=== PATIENT | female | born 1975 | race Caucasian/White ===

== ENCOUNTER 2019-10-23 00:58 | Outpatient (CLI) | payer OTHER, SELFPAY ==
[2019-10-23 19:25] LABS: SARS-CoV-2 RNA PCR Negative
== END 2019-10-23 00:59 | disposition home or self-care (01) ==
LOC: ANHCOVIDDT 00:58
PROVIDERS: Visit Provider Obstetrics & Gynecology
DX: Z01.812 Encounter for preprocedural laboratory examination (principal); Z11.59 Encounter for screening for other viral diseases
CPT/HCPCS: 36415; 86850; 86900; 86901; 87635; C9803; U0003

== ENCOUNTER 2019-10-23 09:18 | Outpatient (CLI) | payer OTHER, SELFPAY | END 2019-10-23 09:19 | disposition home or self-care (01) | PROVIDERS: Visit Provider Obstetrics & Gynecology | DX: R10.2 Pelvic and perineal pain (principal); Z01.812 Encounter for preprocedural laboratory examination | CPT/HCPCS: 36415; 86850; 86900; 86901 ==

== ENCOUNTER 2019-10-25 00:46 | Day surgery (SDC) | payer OTHER, SELFPAY ==
[2019-10-11 15:57] VITALS: BMI 18.1
[2019-10-25] VITALS (17 sets, daily range): BP systolic 101–135; BP diastolic 67–117; PULSE 53–92; RESP 12–18; TEMP 36.2–37.1; O2SAT 96–100
--- NOTE | 2019-10-25 10:11 | WPDANESEPPF ---
Anes - Initial Pre Proc Eval Procedure: Operation Date: 10/25/19 12:00 Proposed Procedures p Total Laparoscopic Hysterectomy with Bilateral Salpingectomy - Rukhsana Robledo MD Date/Time: 10/25/19 10:11 Surgeon: Rukhsana Robledo MD Pre Op Diagnosis: pelvic pain, nabothian follicles on cervix Patient Data Age: 43 Gender: F Height: 1.55 m Weight: 43.54 kg Allergies Allergy/AdvReac Type Severity Reaction Status Date / Time penicillin G Allergy Severe CHILLS, N/V Verified 10/11/19 15:20 adhesive tape Allergy Rash Verified 10/11/19 15:20 amoxicillin Allergy Nausea and Verified 10/11/19 16:13 Vomiting latex Allergy Rash Verified 10/11/19 15:20 Home Medications Medication Instructions Recorded Confirmed Type cetirizine [Zyrtec] 10 mg PO DAILY 10/11/19 10/11/19 History multivitamin,[id number] 1 tablet PO DAILY 10/11/19 10/11/19 History [Complete Multivitamin] Patient hx anesthesia problems: none Family hx anesthesia problems: none PMFSH Past Medical History Medical History (Updated 10/25/19 @ 10:13 by Hema Kothari MD) Anxiety Asthma IBS (irritable bowel syndrome) Migraine Pelvic inflammatory disease Surgical History Surgical History (Updated 10/25/19 @ 10:13 by Hema Kothari MD) Hx of appendectomy Social History Social History (Updated 10/11/19 @ 16:12 by Rubi Thacker RN) Smoking packs per day: 0.5 Smoking cigarettes per day: 10.0 Years smoked: 3 Smoking pack-years: 1.50 Smoking status: Former smoker Tobacco type: cigarettes Smoking end date: 12/12/12 Alcohol intake: never Substance use: current Substance use type: marijuana Living arrangements: with family Spiritual care concerns: No Anes - Eval Final PreProcedure Day of Procedure 10/25/19 10:11 Patient weight: normal Heart: regular rate and rhythm Lungs: clear to auscultation and normal air movement Airway: Mallampati scale class II Neurological: alert and oriented Last oral intake: >/= 8 hours ASA classification: II Emergent: no Anesthetic plan: proceed Anesthesia type and monitoring: general ETT Informed Consent: The patient's anesthetic plan and its attendant risks and benefits were discussed with the patient/family/POA. Questions were solicited and answers provided to the satisfaction of the patient/family/POA.
[2019-10-25] MEDS: LACTATED RINGERS 1,000 ML 30 ML IV CONT ×2 (10:30→15:10)
[2019-10-25] MEDS: KETOROLAC 15 MG/ML VIAL (*BKC) IV PUSH ×2 (11:00→21:15)
[2019-10-25] MEDS: ACETAMINOPHEN 500 MG TABLET 1000 MG PO (11:00)
--- NOTE | 2019-10-25 12:01 | WPDHPUPDATE1 ---
History and Physical Update Update Date/Time: 10/25/19 12:01 History and Physical has been reviewed, including an updated exam of the patient. There are NO changes in the patient's condition. Risks, benefits, and alternatives have been discussed and questions answered. Patient agrees to proceed with procedure.
[2019-10-25] MEDS: ceFAZolin 2 GM/D5W 50 ML 2 GM/50 ML BAG IVPB (12:02)
[2019-10-25] MEDS: BUPIVACAINE/EPINEPHRINE 0.25% 50 ML VIAL INFILTRATE (13:31)
--- NOTE | 2019-10-25 15:41 | P.OP_ITS ---
Procedure Note - Detailed Date of procedure: 10/25/19 Pre-op diagnosis: pelvic pain, nabothian follicles on cervix Post-op diagnosis: same (left ovary with minimal blood supply) Procedure performed: laparoscopic bilateral salpingectomy, left ooophorectomy, cystoscopy Description of procedure: The patient was taken to the operating room where general anesthesia was adequate. She was then prepared and draped in the dorsal supine position in [facility]. A speculum was used to visualize the cervix and single toothed tenacuclum placed on the anterior lip. The cervix was serially dialated and uterine sounded to 8cm. So VANCE was fitted with medium michelle cup and 8cm stem. A suture was placed on posteior lip of the cervix and fed through the vance. The vance was affixed to the cervix by inserting the stem into the uterine cavity, insufflating the intrauterine balloon, then pulling the michelle cup down on the cervix and tying the suture around it to hold it in place. The speculum was then removed and chau inserted. The attention was turned to the umbilicus with was injected with 0.5% marcained with epinephrine. Infraumbilical fold incised with scalpel. Veriess needle used to insert into the peritneum and saline drop test was positive for entry. Pneumoperitneum created to 15mmHg. A 5mm port inserted with optical entry and the patient was placed in Trendelenberg. The uterus was elevated. Pelvis inspected and free of adhesions. Left ovary dark red/dense appearing. Left tube elevated and it appeared the left ovary was not attached by IP ligament. So right and left lower quadrant ports were placed with direct visualization 2 finger breadths medial to ASIS on both sides by incising the skin with scalpel and watching the 5mm port enter into the peritoneum. So the Uteroovarian ligament was caterized lateral to the ovary, then the round ligament cauterized with 5mm Ligasure. I then completed the dissection on this side by cauterizing the middle of the broad ligament then opening the anterior and posterior leafs. I turned attention to the right side where the tube was pulled forward and the 5mm ligasure used to cauterize the tuboovarian ligament, then through the broad ligament and across the uteroovarian ligament then over the round ligament. The anterior leaf dissected and completed dissection to the other side. Similarly posterior, the posterior leaf was taken across to the other side to comopleete the dissection. The uterine arteries were then skeletonized and cauterized first on the right then on the left. The J hook cautery used to create colpotomy incision starting posteriorly, counter clock minaya until the uterus was completely amputated following the cephalad edge of the MICHELLE cup palpated through the tissue. One amputated the uterus was pulled throiugh the vaginal incision. I then turned my attention vaginally and clcosed the cuff manually with 5 interrupted figure of 8 stitches. The chau removed and cystoscopy showed bilateral ureteral jets. The camera was then reinserted and the cuff was hemostatic so ports removed, pneumoperitneum released and skin closed with 4-0 monocryl in interrupted fashion. Vaginal packing placed. Anesthesia: GETA Surgeon: Rukhsana Robledo MD Estimated blood loss (mL): 40 Drains: No Packing: Yes Pathology: yes (uterus, cervix, fallopian tubes bilaterally and left ovary ) Complications: No immediate complications Condition: stable Disposition: floor (Discharge same day from OB) Findings: Left ovary with low blood supply and appeared to be dense and infarcted. Right ovary wnl. Tubal ligation done previously with rings and rings removed with specimen
[2019-10-25] MEDS: KETOROLAC 30 MG/ML VIAL (*BKC) IV PUSH (16:08)
--- NOTE | 2019-10-25 16:23 | SUR.PHASEI ---
Per patient, lives about an hour away. works nights and doesn't wake-up until about 7ish. RN tried to call him in recovery for an update and there was no answer. Also, no voicemail is set-up so couldn't leave a message.
[2019-10-25] MEDS: LACTATED RINGERS 1,000 ML 125 ML (17:38)
[2019-10-25] MEDS: LIDOCAINE 5% PATCH 1 PATCH TRANSDERM (19:07)
[2019-10-26 00:28] VITALS: BP 121/80; PULSE 61; RESP 18; TEMP 36.6; O2SAT 97
[2019-10-26] MEDS: KETOROLAC 15 MG/ML VIAL (*BKC) IV PUSH (04:57)
[2019-10-26 04:58] VITALS: BP 137/88; PULSE 89; RESP 16; TEMP 37.2; O2SAT 97
[2019-10-26 08:05] VITALS: BP 152/81; PULSE 70; RESP 18; TEMP 37.7; O2SAT 99
--- NOTE | 2019-10-26 08:23 | WPDPN ---
Progress Note: A&P Additional Plan POD #1 s/p TLH, BS, Left oophorectomy, cystoscopy PLAN: OK TO DISCHARGE HOME. Recovering as expected. Follow up in office in 1-2 weeks asscheduled. Call if Vaginal bleeding > 1 pad per hour, dizziness, fever >100.4, uncontrolled pain or uncontrolled vomiting Time Spent With Patient Time with patient: less than 15 minutes Review of Systems Review of Systems: All systems reviewed & are unremarkable except as noted in HPI and below Constitutional: Constitutional: Denies as per HPI, Denies no additional constitutional complaints, Denies body ache(s), Denies chills, Reports difficulty sleeping, Reports fatigue, Denies lethargy, Denies night sweats and Denies weakness Eyes: Eyes: Denies as per HPI, Denies no additional eye complaints, Denies blurry vision and Denies photophobia ENT: Denies system reviewed and no additional complaints, except as documented, Denies as per HPI, Denies Normal hearing present, Denies dysphagia, Denies epistaxis, Denies nasal congestion, Denies nasal discharge and Denies tinnitus Cardiovascular: Cardiovascular: Denies as per HPI, Denies no additional cardiovascular complaints, Denies chest pain, Denies diaphoresis, Denies pedal edema, Denies leg edema, Denies lightheadedness and Denies palpitations Respiratory: Respiratory: Denies as per HPI, Denies no additional respiratory complaints, Denies chest congestion, Denies cough, Denies hemoptysis, Denies dyspnea, Denies dyspnea on exertion and Denies wheezing Gastrointestinal: Gastrointestinal: Denies as per HPI, Denies no additional gastrointestinal complaints, Reports abdominal pain, Denies melena, Denies bloating, Denies hematochezia, Denies constipation, Denies heartburn, Denies diarrhea, Denies nausea, Denies vomiting and Denies hematemesis Genitourinary: Genitourinary: Denies no additional female genitourinary complaints, Denies as per HPI, Denies hematuria, Denies urinary frequency, Denies nocturia, Denies menorrhagia, Denies hot flashes, Denies dysmenorrhea, Denies dysuria, Denies pelvic pain, Denies flank pain, Denies urinary incontinence, Denies urinary hesitancy, Denies urinary urgency and Denies vaginal discharge Musculoskeletal: Musculoskeletal: Denies no additional musculoskeletal complaints, Denies as per HPI, Denies back pain, Denies myalgias, Denies arthralgias, Denies joint swelling, Denies neck pain and Denies stiffness Integumentary/Breasts: Skin/Breast: Denies system reviewed and no additional complaints, except as docu, Denies as per HPI, Denies breast pain, Denies breast mass, Denies dry skin, Denies pruritus, Denies erythema, Denies rash, Denies skin pain, Denies unusual bruising and Denies wounds Neurologic: Denies system reviewed and no additional complaints, except as documented, Denies as per HPI, Denies Abnormal speech present, Denies abnormal gait, Denies confusion, Denies vertigo, Denies headache(s) and Denies numbness Psychiatric: Psychiatric: Denies no additional psychiatric complaints, Denies as per HPI, Denies anxiety, Denies behavioral changes, Denies confusion, Denies depression, Denies homicidal ideation and Denies suicidal ideation Exam Const: General: no acute distress; No comfortable, in distress or uncomfortable HENMT: Ears: TM's normal bilaterally and TM abnormal General nose exam: Normal nares present and no epistaxis Mouth: Yes moist mucous membranes, No dry mucous membranes and Yes Abnormal oral and palatal mucosa present Eyes: General: appearance normal, both eyes and all related structures Neck: Neck: supple and no JVD Lymphatic: lymphadenopathy not noted Resp: Effort & Inspection: normal respiratory effort Cardio: Rate: regular rate GI: Inspection: non-distended GI Palp: Yes Soft to palpation, Yes Tenderness to palpation present (GI) and No Guarding due to palpation present (GI) Percussion: Yes normal to percussion, No dullness to percussion, No Fluid wave present and No tympanic to percussi
[2019-10-26] MEDS: THERAPEUTIC MULTIVITAMINS/MINERALS TAB (*BKC) 1 TABLET PO (09:02)
[2019-10-26] MEDS: LIDOCAINE 5% PATCH 1 PATCH TRANSDERM (09:02)
== END 2019-10-26 10:05 | disposition home or self-care (01) ==
LOC: ANHSURGERY 15:34 → ANHOB2 16:54
PROVIDERS: Visit Provider Obstetrics & Gynecology
PROC: 0UT9FZZ Resection of Uterus, Via Natural or Artificial Opening With Percutaneous Endoscopic Assistance (ICD-10-PCS; CPT 58552; principal; 2019-10-25 12:00)
DX: R10.2 Pelvic and perineal pain (principal); N88.8 Other specified noninflammatory disorders of cervix uteri; N80.0 Endometriosis of uterus; D25.1 Intramural leiomyoma of uterus; N83.8 Other noninflammatory disorders of ovary, fallopian tube and broad ligament; Z87.891 Personal history of nicotine dependence
CPT/HCPCS: 58552; 87086; 87088; 88307; 99199; A9270; J0330; J0690; J1100; J1885; J2250; J2405; J2704; J2710; J3010; J7030; J7120